=== PATIENT | male | born 1990 | race Two or more races ===

== ENCOUNTER 2019-10-17 13:07 | Emergency (ER) | payer SELFPAY ==
[~2019-10-17] VITALS: Ht 175.3 cm; Wt 80.0 kg
[2019-10-17 16:29] VITALS: BP 142/89
== END 2019-10-17 15:40 | disposition home or self-care (01) ==
LOC: ER 13:07
DX: B34.9 Viral infection, unspecified (principal); F14.10 Cocaine abuse, uncomplicated; F12.10 Cannabis abuse, uncomplicated
CPT/HCPCS: 99281

== ENCOUNTER 2021-11-27 11:39 | Emergency (ER) | payer MEDICAID ==
[~2021-11-27] VITALS: Ht 167.6 cm; Wt 89.0 kg
[2021-11-27 11:41] VITALS: BP 150/90
[2021-11-27] MEDS ORDERED: KETOROLAC 60MG/2ML VIAL IM ONE (12:00)
[2021-11-27 13:23] LABS: BASOPHILS % 1.4 % (0.0-2.0); EOSINOPHILS % 3.9 % (0.0-5.0); HEMATOCRIT. 50.2 % (42.0-52.0); LYMPHOCYTES % 22.5 % (20.0-50.0); MEAN CORPUSCULAR HEMOGLOBIN 31.3 pg (28.0-32.0); MEAN CORPUSCULAR VOLUME 92.4 fL (80.0-94.0); MEAN PLATELET VOLUME 9.2 fl (7.4-10.4); MONOCYTES % 9.1 % (2.0-8.0); NEUTROPHILS % 63.1 % (40.0-76.0); PLATELET 240 x1000/uL (130-400); RED BLOOD CELL COUNT 5.44 mill/uL (4.7-6.1)
[2021-11-27 13:33] LABS: CHLORIDE 106 mEq/L (98-107)
[2021-11-27] MEDS ORDERED: ASPIRIN 325MG EC TABLET PO ONE (14:15)
== END 2021-11-27 18:02 | disposition left against medical advice (07) ==
LOC: ER 11:39 → CANBEDREQ 21:28
DX: R07.89 Other chest pain (principal); I49.49 Other premature depolarization; M54.2 Cervicalgia; F14.90 Cocaine use, unspecified, uncomplicated; F12.90 Cannabis use, unspecified, uncomplicated; Z82.49 Family history of ischemic heart disease and other diseases of the circulatory system
CPT/HCPCS: 36415; 71045; 80053; 84484; 85025; 93005; 96372; 99285; J1885